=== PATIENT | male | born 1955 | race Caucasian/White ===

== ENCOUNTER 2019-02-01 11:36 | Day surgery (SDC) | payer MEDICARE, BC ==
[2019-02-01] MEDS ORDERED: LIDOCAINE 2% MDV (20MG/ML) 20ML VIAL IV ONE (11:37)
[2019-02-01] MEDS ORDERED: MIDAZOLAM HCL 2MG/2ML VIAL IV ONE (11:37)
[2019-02-01] MEDS ORDERED: PROPOFOL 10 MG/ML VIAL IV ONE (11:37)
--- NOTE | 2019-02-03 07:50 | Operative Note ---
OPERATION: COLONOSCOPY to the cecum. INDICATION: History of adenomatous polyps. His last colonoscopy was 2012. He returns at this time for surveillance. He denies any current issues. ANESTHESIA: Intravenous sedation was administered by the department of anesthesiology and included Diprivan titrated to effect. PROCEDURE: Following informed consent from this alert individual including a discussion of the risks and benefits of the procedure and an opportunity for the patient to ask questions, the patient was in the left lateral decubitus position. A digital rectal examination was performed. No abnormalities were noted. Following this, the Olympus DIT014 video colonoscope was inserted into the rectum without resistance. The rectal mucosa had a normal appearance with normal folds and distensibility. The colonoscope was advanced up through the bowel to the level of the cecum without much difficulty. Throughout the bowel the mucosa appeared normal, the folds were normal, and the bowel was fairly well distensible. The cecum was well defined by noting the appendiceal orifice and ileocecal valve. The terminal ileum was cannulated and found to be normal as well. From the base of the cecum, the colonoscope was then withdrawn. Overall, the colon preparation was good. No changes were noted throughout the bowel upon withdrawal. Retroflexion in the rectum was endoscopically normal. The instrument was straightened and removed. The patient tolerated the procedure well and was returned to the recovery area in stable condition. IMPRESSION: Normal colonoscopy to the cecum and terminal ileum. RECOMMENDATIONS: Because of the patient's prior history of adenomatous polyps, I did recommend a recheck colonoscopy in 5 years' time or sooner should problems arise. Followup will otherwise be with Kostas Zambrano MD. As always, thank you for allowing me to participate in the care of your patient. CC: MD DELLA Clark
== END 2019-02-01 14:00 | disposition home or self-care (01) ==
LOC: HOP 11:36
PROVIDERS: ATTEND Internal Medicine Gastroenterology
DX: Z12.11 Encounter for screening for malignant neoplasm of colon (principal); Z86.010 Personal history of colon polyps
CPT/HCPCS: 00812; G0105